=== PATIENT | male | born 1950 | race Caucasian/White ===

== ENCOUNTER 2016-09-19 10:41 | Observation (INO) | payer BC ==
[~2016-09-19] VITALS: Ht 182.9 cm; Wt 139.0 kg
[~2016-09-19 10:41] MED LIST: ASPI81TA2 PO; CLOB15CR5 TOP; CLOP75TA33 PO; EZET10TA PO; FAMO20TA8 PO; HYDR-2164 PO; LOSA25TA34 PO; METF500T4 PO; METO25TA6 PO; NITR0.4T39 SL; POTA10CA37 PO; SERT-88 PO
--- OUTSIDE RECORDS SUMMARY | 2016-09-19 10:50 | XMS REPORT | Continuity of Care Document ---
Author Author [facility] Organization [facility] Address Unknown Phone Unavailable Allergies Active Description Code Type Severity Reaction Onset Reported/Identified Relationship to Patient Clinical Status Yes cyclobenzaprine NKMA N/A N/A 01/09/2014 Yes cyclobenzaprine NKMA N/A N/A 01/09/2014 Yes Welchol NKMA N/A [id number] 10/21/2014 Yes Welchol NKMA N/A [id number] 10/21/2014 Yes statins NKMA N/A [id number] 11/17/2014 Yes statins NKMA N/A [id number] 11/17/2014 Yes cephalexin NKMA N/A N/A 12/09/2014 Yes erythromycin NKMA N/A N/A 12/09/2014 Yes cephalexin NKMA N/A N/A 12/09/2014 Yes erythromycin NKMA N/A N/A 12/09/2014 Yes Tape Other N/A N/A 01/29/2015 Yes Tape 403 N/A N/A 01/29/2015 Medications Medication Packaging Start Date Stop Date Route Dosage Sig potassium chloride(potassium chloride 10 mEq oral capsule, extended release) 08/201303/03/2014 See Instructions, TAKE ONE CAPSULE BY MOUTH EVERY DAY, 30 unknown unit atorvastatin(Lipitor 40 mg oral tablet) 1 tabs 11/13/201301/09 Oral 40 mg 1 tabs, Oral, Daily, 30 tabs nitroglycerin(nitroglycerin 0.4 mg sublingual tablet) 1 tabs 11/13/2013 07/05/2015 SubLingual 0.4 mg 1 tabs, SubLingual, q5min, 100 tabs, PRN: as needed for chest pain losartan(Cozaar 25 mg oral tablet) 1 tabs 11/13/2013 Oral 25 mg 1 tabs, Oral, Daily, 30 tabs metoprolol(metoprolol tartrate 25 mg oral tablet) 1 tabs 11/13/2013 Oral 25 mg 1 tabs, Oral, BID, 60 tabs isosorbide mononitrate(Imdur 30 mg oral tablet, extended release) 1 tabs 201301/09/2014 Oral 30 mg 1 tabs, Oral, qAM, 30 tabs amLODIPine(amLODIPine 10 mg oral tablet) 1 tabs 11/13/201305/2014 Oral 10 mg 1 tabs, Oral, Daily, 30 tabs sertraline(Zoloft 100 mg oral tablet) 0.5 tabs 11/13/201301/09 Oral 50 mg 0.5 tabs, Oral, Daily, 30 tabs potassium chloride(potassium chloride 10 mEq oral capsule, extended release) 1 caps 11/13/2013 03/03/2014 Oral 10 mEq 1 caps, Oral, Daily, 30 caps hydrochlorothiazide(hydrochlorothiazide 25 mg oral tablet) 1 tabs 11/13/2013 08/26/2014 Oral 25 mg 1 tabs, Oral, Daily, 30 tabs fluticasone nasal(Flonase 50 mcg/inh nasal spray) 1 sprays 11/13/2013 01/09/2014 Nasal 1 sprays, Nasal, BID, 16 g loratadine(loratadine 10 mg oral tablet) 1 tabs 11/13/2013 Oral 10 mg 1 tabs, Oral, Daily, 30 tabs omeprazole(omeprazole 20 mg oral delayed release capsule) 1 caps 11/13/2013 01/09/2014 Oral 20 mg 1 caps, Oral, Daily, 30 caps aspirin(aspirin 325 mg oral tablet) 1 tabs 11/13/20132015 Oral 325 mg 1 tabs, Oral, Daily, 30 tabs clopidogrel(Plavix 75 mg oral tablet) 1 tabs 11/13/20132013 Oral 75 mg 1 tabs, Oral, Daily, 90 tabs pitavastatin(Livalo) 01/09/2014 06/03/2014 Oral Oral, Daily potassium chloride(potassium chloride 10 mEq oral capsule, extended release) 08/26/2014 See Instructions, TAKE ONE CAPSULE BY MOUTH EVERY DAY, 30 unknown unit clopidogrel(Plavix 75 mg oral tablet) 1 tabs 06/03/20142014 Oral 75 mg 1 tabs, Oral, Daily, Dr. Stewart benzonatate(Tessalon 200 mg oral capsule) 1 caps 06/03/201403/2015 Oral 200 mg 1 caps, Oral, TID, 30 caps azithromycin(Zithromax Z-Elder 250 mg oral tablet) 1 packets 07/08/2014 07/13/2014 Oral 1 packets, Oral, Daily, as directed on package labeling , 6 tabs predniSONE(predniSONE 20 mg oral tablet) 1 tabs 07/08/201402/2015 Oral 20 mg 1 tabs, Oral, Daily, 5 tabs promethazine/phenylephrine/codeine(promethazine/ phenylephrine/codeine 6.25 mg-5 mg-10 mg/5 mL oral syrup) 5 mL 07/08/20142014 Oral 5 mL, Oral, q6hr, 120 mL, PRN: as needed for cough famotidine(Pepcid 20 mg oral tablet) 1 tabs 07/13/2014 Oral 20 mg 1 tabs, Oral, BID, 60 tabs sertraline(Zoloft 50 mg oral tablet) 1 tabs 07/13/20142014 Oral 50 mg 1 tabs, Oral, Daily, 30 tabs metFORMIN(metFORMIN 500 mg oral tablet) 1 tabs 07/30/201408/28 Oral 500 mg 1 tabs, Oral, Daily, 2 tablets with evening meal, 60 tabs metFORMIN(metFORMIN 500 mg oral tablet) 1 tabs 08/28/201401/04 Oral 500 mg 1 tabs, Oral, BID, 60 tabs diphenhydrAMINE(diphenhydrAMINE) 12/09/2014 09/20/2015 Oral 25 mg 25 mg, Oral, q6hr, PRN: as needed for allergy symptoms, 0 Refill(s) levofloxacin(Levaquin 500 mg oral tablet) 1 tabs 12/09/2014 Oral 500 mg 500 mg=1 tabs, Oral, q24hr, for 7 days, 7 tabs, 0 Refill(s) clopidogrel(Plavix 75 mg oral tablet) 12/31/2014 06/25/2015 See Instructions, TAKE ONE TABLET BY MOUTH ONCE A DAY, 90 tabs, 1 Refill(s) metFORMIN(metFORMIN 500 mg oral tablet) 01/04/20152014 See Instructions, TAKE ONE TABLET BY MOUTH TWICE A DAY, 60 tabs, 2 Refill (s) tetanus/diphth/pertuss (Tdap) adult/adol(Boostrix (Tdap) intramuscular suspension) 0.5 mL 01/11/2015 01/11/2015 IntraMuscular 0.5 mL , IntraMuscular, Once potassium chloride(potassium chloride 10 mEq oral capsule, extended release) 10/201408/02/2015 See Instructions, TAKE ONE CAPSULE BY MOUTH EVERY DAY, 30 unknown unit, 4 Refill(s) hydrochlorothiazide(hydrochlorothiazide 25 mg oral tablet) 03/08/2015 09/20/2015 See Instructions, TAKE ONE TABLET BY MOUTH EVERY DAY, 90 tabs sertraline(Zoloft 100 mg oral tablet) 03/08/2015 09/03/2015 See Instructions, TAKE 1/2 TABLET BY MOUTH ONCE DAILY, 90 tabs clobetasol topical(clobetasol 0.05% topical cream) 1 fide 03/22/2015 04/22/2015 Topical 1 fide, Topical, BID, 15 g, 0 Refill(s) levofloxacin(Levaquin 500 mg oral tablet) 1 tabs 04/21/2015 Oral 500 mg 500 mg=1 tabs, Oral, q24hr, for 7 days, 7 tabs, 0 Refill(s) levofloxacin(Levaquin 500 mg oral tablet) 1 tabs 04/21/2015 Oral 500 mg 500 mg=1 tabs, Oral, q24hr, for 10 days, 10 tabs, 0 Refill(s) levofloxacin(Levaquin 500 mg oral tablet) 1 tabs 06/21/2015 Oral 500 mg 500 mg=1 tabs, Oral, q24hr, for 10 days, 10 tabs, 0 Refill(s) clopidogrel(Plavix 75 mg oral tablet) 06/25/2015 09/20/2015 See Instructions, TAKE ONE TABLET BY MOUTH ONCE A DAY, 90 tabs, 1 Refill(s) nitroglycerin(nitroglycerin 0.4 mg sublingual tablet) 1 tabs 07/05/2015 SubLingual 0.4 mg 0.4 mg=1 tabs, SubLingual, q5min, PRN: as needed for chest pain, 1 bottles, 11 Refill(s) mupirocin topical(mupirocin 2% topical cream) 08/09/2015 See Instructions, Apply a pea-sized amount of ointment with a Q-tip to each nostril twice a day., 30 g, 0 Refill(s) clobetasol topical(clobetasol 0.05% topical cream) fide 09/20/2015 Topical fide, Topical, Bedtime (once a day), leg rash, 0 Refill(s) sertraline(sertraline) 09/20/2015 04/03/2016 Oral 50 mg 50 mg, Oral, Daily, 0 Refill(s) clopidogrel(clopidogrel) 09/20/2015 Oral 75 mg 75 mg, Oral , Daily, 0 Refill(s) metFORMIN(metFORMIN) 09/20/2015 11/02/2015 Oral 1,000 mg 1,000 mg, Oral, qPM, 0 Refill(s) hydrochlorothiazide(hydrochlorothiazide) 09/20/2015 Oral 25 mg 25 mg, Oral, Daily, 0 Refill(s) acetaminophen(Tylenol range dose) 2 tabs 09/20/2015 09/27/2015 Oral 1,000 mg 1,000 mg=2 tabs, Oral, q4hr, PRN: Pain Mild (1-3) diphenhydrAMINE(diphenhydrAMINE) 1 tabs 09/20/2015 09/27/2015 Oral 25 mg 25 mg=1 tabs, Oral, q6hr, PRN: Seasonal Allergy Symptoms potassium chloride(Klor-Con) 09/20/2015 11/02/2015 Oral 10 mEq 10 mEq, Oral, Daily, 0 Refill(s) amLODIPine(amLODIPine) 09/20/2015 10/01/2015 Oral 10 mg 10 mg, Oral, Daily, 0 Refill(s) aspirin(aspirin) 1 tabs 09/20/2015 09/20/2015 Oral 325 mg 325 mg=1 tabs, Oral, Daily metoprolol(metoprolol tartrate 25 mg oral tablet) 1 tabs 09/20/2015 09/27/2015 Oral 50 mg 50 mg=1 tabs, Oral, BID sertraline(sertraline) 1 tabs 09/20/2015 09/27/2015 Oral 50 mg 50 mg=1 tabs, Oral, Daily loratadine(loratadine) 1 tabs 09/20/2015 09/27/2015 Oral 10 mg 10 mg=1 tabs, Oral, Daily famotidine(Pepcid) 1 tabs 09/20/2015 09/27/2015 Oral 20 mg 20 mg= 1 tabs, Oral, BID losartan(Cozaar) 1 tabs 09/20/2015 09/27/2015 Oral 25 mg 25 mg= 1 tabs, Oral, Daily mupirocin topical(mupirocin 2% topical cream) 1 fide 09/20/2015 Nasal 1 fide, Nasal, TID, PRN: as needed, 0 Refill(s) morphine(morphine) 0.5 mL 09/20/2015 09/23/2015 IV Push 1 mg 1 mg=0.5 mL, IV Push, q4hr, PRN: Angina/Chest Pain nitroglycerin(nitroglycerin) 1 tabs 09/20/2015 10/02/2015 SubLingual 0.4 mg 0.4 mg=1 tabs, SubLingual, q5min, PRN: Angina/Chest Pain enoxaparin(Lovenox) 1 mL 09/20/2015 09/21/2015 SubCutaneous 150 mg 150 mg=1 mL, SubCutaneous, q12hr aspirin(aspirin) 1 tabs 09/20/2015 09/27/2015 Oral 81 mg 81 mg= 1 tabs, Oral, Daily heparin(Heparin Bolus) 1 mL 09/21/2015 09/27/2015 IV Push 5,000 units 5,000 units=1 mL, IV Push, q6hr, PRN: Other (See Comment) ondansetron(ondansetron) 2 mL 09/23/2015 09/27/2015 IV Push 4 mg 4 mg=2 mL, IV Push, q6hr, PRN: Nausea mupirocin topical(Bactroban) 1 fide 09/26/2015 09/27/2015 Nasal 1 fide, Nasal, BID allopurinol(Zyloprim) 2 tabs 09/26/2015 09/27/2015 Oral 600 mg 600 mg=2 tabs, Oral, Once acetaminophen(acetaminophen) 1 supp 09/26/2015 09/27/2015 Rectal 650 mg 650 mg=1 supp, Rectal, q4hr, PRN: Pain Mild (1-3) zolpidem(Ambien) 1 tabs 09/26/2015 09/27/2015 Oral 5 mg 5 mg=1 tabs, Oral, Bedtime (once a day), PRN: Insomnia metoclopramide(Reglan) 2 mL 09/27/2015 10/02/2015 IV Push 10 mg 10 mg=2 mL, IV Push, q6hr, PRN: Nausea HYDROcodone-acetaminophen([place] 5 mg-325 mg oral tablet) 09/27/2015 10/02/2015 Oral 1-2 tabs, Oral, q4hr, PRN: Pain Moderate (4-6) docusate(Colace) 2 caps 09/27/2015 10/02/2015 Oral 200 mg 200 mg=2 caps, Oral, Daily albuterol(albuterol CFC free 90 mcg/inh inhalation aerosol ) 6 puffs 09/27/2015 09/27/2015 Inhalation 540 mcg 540 mcg=6 puffs, Inhalation, q4hr (scheduled), PRN: Wheezing morphine(morphine) 09/27/2015 10/02/2015 IV Push 2-4 mg, IV Push, q2hr, PRN: Pain Severe (7-10) ondansetron(Zofran) 2 mL 09/27/2015 10/02/2015 IV Push 4 mg 4 mg= 2 mL, IV Push, q6hr, PRN: Nausea glucagon(glucagon) 1 mL 09/27/2015 10/02/2015 IntraMuscular 1 mg 1 mg=1 mL, IntraMuscular, As Indicated, PRN: Hypoglycemia/Low Blood Sugar Al hydroxide/Mg hydroxide/simethicone(Maalox Advanced Maximum Strength oral suspension) 15 mL 09/27/2015 10/02/2015 Oral 15 mL, Oral, q4hr, PRN: GERD/Heartburn Sodium Chloride 0.9%(sodium chloride 0.9% 250 mL) 250 mL 09/27/2015 09/28/2015 IV 10 mL/hr, IV polyethylene glycol 3350(MiraLax) 1 packets 09/27/20152015 Oral 17 g 17 g=1 packets, Oral, Daily albuterol(albuterol 5 mg/mL (0.5%) inhalation solution) 0.5 mL 09/27/2015 09/27/2015 NEB 2.5 mg 2.5 mg=0.5 mL, NEB, q4hr (scheduled), PRN: Wheezing Dextrose 50% in Water(Dextrose 50% in Water Injection) 25 mL 09/27/2015 10/02/2015 IV Push 12.5 g 12.5 g=25 mL, IV Push, q15min, PRN: Hypoglycemia/Low Blood Sugar Dextrose 10% in Water(Dextrose 10% in Water 250 mL) 250 mL 09/27/2015 09/28/2015 IV 50 mL/hr, IV heparin(heparin) 1 mL 09/27/2015 10/02/2015 SubCutaneous 5,000 units 5,000 units=1 mL, SubCutaneous, TID mupirocin topical(Bactroban) 1 fide 09/27/2015 09/30/2015 Nasal 1 fide, Nasal, BID senna(Senokot) 1 tabs 09/27/2015 10/02/2015 Oral 8.6 mg 8.6 mg=1 tabs, Oral, BID famotidine(Pepcid) 2 mL 09/27/2015 09/28/2015 IV Push 20 mg 20 mg =2 mL, IV Push, BID acetaminophen(acetaminophen) 1 supp 09/27/2015 10/02/2015 Rectal 650 mg 650 mg=1 supp, Rectal, q4hr, PRN: Fever aspirin(aspirin) 1 tabs 09/27/2015 10/02/2015 Oral 81 mg 81 mg= 1 tabs, Oral, Daily potassium chloride(potassium chloride 20 mEq oral powder for reconstitution) 2 packets 09/27/2015 09/29/2015 Oral 40 mEq 40 mEq=2 packets, Oral , q2hr, PRN: Other (See Comment) magnesium sulfate(magnesium sulfate) 100 mL 09/27/20152015 IV Piggyback 4 g 4 g=100 mL, 25 mL/hr, IV Piggyback, Daily, PRN: Other (See Comment) potassium chloride(potassium chloride 10 mEq/50 mL intravenous solution) 50 mL 09/27/2015 09/29/2015 IV Piggyback 10 mEq 10 mEq=50 mL, 50 mL/hr, IV Piggyback, q1hr, PRN: Other (See Comment) potassium chloride(potassium chloride 20 mEq oral tablet, extended release) 2 tabs 09/27/2015 09/29/2015 Oral 40 mEq 40 mEq=2 tabs, Oral, q2hr, PRN: Other (See Comment) calcium gluconate(calcium gluconate) 30 mL 09/27/20152015 IV Piggyback 3 g 3 g=30 mL, 43.33 mL/hr, IV Piggyback, Daily, PRN: Other ( See Comment) calcium carbonate(calcium carbonate) 2 tabs 09/27/20152015 Oral 2,500 mg 2,500 mg=2 tabs, Oral, TID, PRN: Other (See Comment) metoprolol(Lopressor) 0.5 tabs 09/28/2015 10/02/2015 Oral 12.5 mg 12.5 mg=0.5 tabs, Oral, BID furosemide(Lasix) 4 mL 09/28/2015 10/02/2015 IV Push 40 mg 40 mg =4 mL, IV Push, BID nitroglycerin(Nitrostat 0.4 mg sublingual tablet) 1 tabs 09/29/2015 10/02/2015 SubLingual 0.4 mg 0.4 mg=1 tabs, SubLingual, q5min, PRN: Angina/ Chest Pain bisacodyl(bisacodyl) 1 supp 09/30/2015 09/30/2015 Rectal 10 mg 10 mg=1 supp, Rectal, Once, PRN: Constipation lidocaine topical(Lidoderm 5% topical film) 1 patches 09/30/2015 10/02/2015 TransDermal 1 patches, TransDermal, Daily bisacodyl(bisacodyl) 2 tabs 09/30/2015 10/02/2015 Oral 10 mg 10 mg=2 tabs, Oral, Daily, PRN: Constipation HYDROcodone-acetaminophen([place] 5 mg-325 mg oral tablet) 10/01/2015 10/15/2015 Oral 1-2 tabs, Oral, q4hr, for 14 days, PRN: Pain Moderate (4 -6), 50 tabs, 0 Refill(s) aspirin(aspirin 81 mg oral delayed release tablet) 1 tabs 10/01/2015 Oral 81 mg 81 mg=1 tabs, Oral, Daily, 0 Refill(s) potassium chloride(potassium chloride 20 mEq oral tablet, extended release) 2 tabs 10/02/2015 10/02/2015 Oral 40 mEq 40 mEq=2 tabs, Oral, Once HYDROcodone-acetaminophen([place] 5 mg-325 mg oral tablet) 1 tabs 10/13/2015 11/13/2015 Oral 1 tabs, Oral, q6hr, PRN: as needed for pain, 15 tabs, 0 Refill(s) amoxicillin-clavulanate(Augmentin 875 mg-125 mg oral tablet ) 1 tabs 11/26/2015 12/03/2015 Oral 1 tabs, Oral, q12hr, for 7 days, 14 tabs, 0 Refill(s) predniSONE(predniSONE 10 mg oral tablet) 4 tabs 01/14/201605/2016 Oral 40 mg 40 mg=4 tabs, Oral, Daily, for 4 days, 16 tabs, 0 Refill(s) HYDROcodone-acetaminophen([place] 5 mg-325 mg oral tablet) 1 tabs 01/14/2016 02/14/2016 Oral 1 tabs, Oral, q6hr, PRN: as needed for pain, 40 tabs, 0 Refill(s) predniSONE(predniSONE 10 mg oral tablet) 4 tabs 01/14/2016 Oral 40 mg 40 mg=4 tabs, Oral, Daily, for 4 days, 16 tabs, 0 Refill(s) potassium chloride(potassium chloride 10 mEq oral capsule, extended release) 08/201508/29/2016 See Instructions, TAKE ONE CAPSULE BY MOUTH EVERY DAY, 30 unknown unit, 5 Refill(s) sertraline(sertraline 100 mg oral tablet) 04/03/2016 See Instructions, TAKE 1/2 TABLET BY MOUTH ONCE DAILY, 90 tabs, 1 Refill(s) metFORMIN(metFORMIN 500 mg oral tablet) 04/24/20162016 See Instructions, TAKE ONE TABLET BY MOUTH TWICE A DAY, 60 tabs, 3 Refill (s) metFORMIN(metFORMIN 500 mg oral tablet) 08/21/2016 See Instructions, TAKE ONE TABLET BY MOUTH TWICE A DAY, 60 tabs potassium chloride(potassium chloride 10 mEq oral capsule, extended release) See Instructions, TAKE ONE CAPSULE BY MOUTH EVERY DAY, 30 unknown unit, 5 Refill(s) ezetimibe(Zetia) 09/07/2016 Oral 10 mg 10 mg, Oral, Daily, 0 Refill(s) Problems Date Dx Coded Attending Type Code Diagnosis Diagnosed By 10/04/2015 Branden Davis MD Final E11.9 Type 2 diabetes mellitus without complications 10/04/2015 Branden Davis MD Final E66.9 Obesity, unspecified 10/04/2015 Branden Davis MD Final E78.5 Hyperlipidemia, unspecified 10/04/2015 Branden Davis MD Final G47.33 Obstructive sleep apnea (adult) ( pediatric) 10/04/2015 Branden Davis MD Final I10 Essential (primary) hypertension 10/04/2015 Branden Davis MD Admitting 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 Visit Date/Time Discharge Status Pt. Type Provider Facility Loc./Unit Complaint [id number] 08/29/2013 08:33:00 08/29/2013 23 :59:59 CLS Outpatient [id number] 08/12/2013 10:26:00 08/12/2013 23 :59:59 CLS Outpatient [id number] 08/08/2013 08:50:00 08/08/2013 23 :59:59 CLS Outpatient [id number] 07/21/2013 16:15:00 07/21/2013 23 :59:59 CLS Outpatient
--- OUTSIDE RECORDS SUMMARY | 2016-09-19 10:53 | XMS REPORT | Referral Summary ---
Author Author [facility] Organization [facility] Address Unknown Phone Unavailable Care Team Providers Care Marine Engineer Name Role Phone Raiza Bender Primary Care Physician [phone] Encounter VC Date(s): 05/24/16 - 05/24/16 [facility] [address] [place] [address]- Discharge Disposition: 01-Home or Self Care Attending Physician: Kaushal Hines APRN Admitting Physician: Kaushal Hines APRN Vital Signs Most recent to 1 oldest [Reference Range]: Temperature Tympanic 35.8 degC [36.6-38.1 degC] *LOW* (05/24/16 9:32 AM) Peripheral Pulse 60 bpm Rate [60-100 bpm] (05/24/16 9:32 AM) Respiratory Rate 18 br/min [14-20 br/min] (05/24/16 9:32 AM) Blood Pressure 128/70 mmHg [90-140/60-90 mmHg] (05/24/16 9:32 AM) SpO2 93 % (05/24/16 9:32 AM) Problem List Condition Effective Dates Status Health Status Informant Acute NC(Confirmed) 2013 - 01/08/14 Resolved Acute Active pain(Confirmed) Allergies(Confirmed) Active Anxiety state Active unspec(Confirmed) Embolism and Active thrombosis of unspecified artery(Confirmed) TMJ Active arthralgia(Confirmed ) Pain in joint Active involving pelvic region and thigh(Confirmed) Arthritis(Confirmed) Active At risk of pressure Active sore(Confirmed) Benign essential Active hypertension (disorder)(Confirmed ) Bleeding Active precautions(Confirme d)1 Blepharitis(Confirme Active d) Carpal tunnel Active syndrome(Confirmed) Chest pain Active (finding)(Confirmed) Chronic low back Active pain(Confirmed) Coronary artery Active disease(Confirmed) Dermatochalasis(Conf Active irmed) Depression(Confirmed Active ) acute venous < 01/08/14 Resolved embolism & thrombosis unspe(Confirmed) Statin Active intolerance(Confirme d) Dysphagia, Active unspecified(Confirme d) Edema Active (finding)(Confirmed) unspec gastritis w/o < 01/08/14 Resolved hemorrhage(Confirmed ) GERD Active (gastroesophageal reflux disease)(Confirmed) Gout, Active unspecified(Confirme d) Blood clots in the < 01/08/14 Resolved lung/legs(Confirmed) Hx of adenomatous Active polyp of colon(Confirmed) Impaired gas Active exchange(Confirmed)2 Impaired skin Active integrity(Confirmed) 3 Knowledge Active deficit(Confirmed)4 Methicillin < 12/11/14 Resolved resistant Staphylococcus aureus(Confirmed)5, 6, 7, 8, 9 Obstructive sleep Active apnea(Confirmed) Osteoarthritis, spec Active sites(Confirmed) Overweight(Confirmed Active ) PCO (posterior Active capsular opacification)(Confi rmed) Pseudophakia(Confirm Active ed) Unspecified sleep < 01/08/14 Resolved apnea(Confirmed) TMJ disorders, Active unspec(Confirmed) Tissue perfusion Active alteration(Confirmed )10 Controlled diabetes Active mellitus type II without complication(Confirm ed) Ac DVT/embl low ext < 01/08/14 Resolved NOS(Confirmed) 1Problem added automatically by system based on initiation of Bleeding Precautions Plan of Care 2Problem added automatically by system based on initiation of Impaired Gas Exchange Plan of Care 3Problem added automatically by system based on initiation of Impaired Skin Integrity Plan of Care 4Problem added automatically by system based on initiation of Knowledge Deficit Plan of Care 5Nares from NOT FOUND collected 09/26/15 7:53:00 CDT 6Nares from Nose collected 09/10/15 11:49:00 CDT 7Nares from Other collected 08/24/15 10:50:00 CDT 8Nares from Nose collected 08/04/15 10:32:00 CARE DIRECTOR 9Wound from Abdomen collected 12/09/14 10:38:00 CDT 10Problem added automatically by system based on initiation of Tissue Perfusion Cerebral Plan of Care Allergies, Adverse Reactions, Alerts Substance Reaction Severity Status cephalexin1 Active cyclobenzaprine Active erythromycin2 Active statins Muscle ache Active Tape Active Welchol Joint pain... Active 1Documented by [facility]. Pt cannot reacall reaction. 2documented by [facility]. Pt cannot recall reaction. Medications aspirin 81 mg oral delayed release tablet 81 mg 1 tabs, Oral, Daily, 0 Refill(s) Start Date: 10/01/15 Status: Ordered clobetasol 0.05% topical cream fide, Topical, Bedtime (once a day), leg rash, 0 Refill(s) Start Date: 09/20/15 Status: Ordered clopidogrel 75 mg oral tablet See Instructions, TAKE ONE TABLET BY MOUTH ONCE A DAY, # 90 tabs, eRx: [facility] #[id number], TAKE ONE TABLET BY MOUTH ONCE A DAY Start Date: 05/06/16 Status: Ordered Cozaar 25 mg oral tablet 1 tabs, Oral, Daily, # 30 tabs, 0 Refill(s) Start Date: 11/13/13 Status: Ordered Glucometer strips (DME) DME Item CHECK BLOOD SUGAR 1 TIME DAILY USES CONTOUR NEXT TEST STRIPS E11.9, See Instructions, # 100 Each, 1 Refill(s), Pharmacy: [facility] #[id number], CHECK BLOOD SUGAR 1 TIME DAILY USES CONTOUR NEXT TEST STRIPS E11.9, Supply Start Date: 03/09/16 Status: Ordered hydrochlorothiazide 25 mg, Oral, Daily, 0 Refill(s) Start Date: 09/20/15 Status: Ordered loratadine 10 mg oral tablet 1 tabs, Oral, Daily, # 30 tabs, 0 Refill(s) Start Date: 11/13/13 Status: Ordered metFORMIN 500 mg oral tablet See Instructions, TAKE ONE TABLET BY MOUTH TWICE A DAY, # 60 tabs, 3 Refill(s), eRx: [facility] #[id number], TAKE ONE TABLET BY MOUTH TWICE A DAY Start Date: 04/24/16 Status: Ordered metoprolol tartrate 25 mg oral tablet 1 tabs, Oral, BID, # 60 tabs, 0 Refill(s) Start Date: 11/13/13 Status: Ordered mupirocin 2% topical cream 1 fide, Nasal, TID, as needed, 0 Refill(s) Start Date: 09/20/15 Status: Ordered nitroglycerin 0.4 mg sublingual tablet 0.4 mg 1 tabs, SubLingual, q5min, as needed for chest pain, # 1 bottles, 11 Refill(s), Pharmacy: [facility] #[id number], 1 tabs SubLingual q5min,PRN:as needed for chest pain Start Date: 07/05/15 Status: Ordered Pepcid 20 mg oral tablet 1 tabs, Oral, BID, # 60 tabs, 0 Refill(s), other reason (Rx) Start Date: 07/13/14 Status: Ordered potassium chloride 10 mEq oral capsule, extended release See Instructions, TAKE ONE CAPSULE BY MOUTH EVERY DAY, # 30 unknown unit, 5 Refill(s), eRx: [facility] #[id number], TAKE ONE CAPSULE BY MOUTH EVERY DAY Start Date: 03/06/16 Status: Ordered sertraline 100 mg oral tablet See Instructions, TAKE 1/2 TABLET BY MOUTH ONCE DAILY, # 90 tabs, 1 Refill(s), eRx: [facility] #[id number], TAKE 1/2 TABLET BY MOUTH ONCE DAILY Start Date: 04/03/16 Status: Ordered Results No data available for this section Immunizations Given and Recorded Vaccine Date Status Refusal Reason tetanus/diphth/pertuss (Tdap) adult/adol 01/11/15 Given tetanus/diphth/pertuss (Tdap) adult/adol 11/22/06 Recorded Procedures Procedure Date Related Diagnosis Body Site Laparoscopic repair of incisional hernia. 01/28/16 Eye examination1 10/27/15 Bypass Graft Coronary Artery2 09/27/15 [place] Endoscopic (Left)3 09/27/15 Laparoscopic right hemicolectomy4, 5 11/26/14 Colonoscopic polypectomy6 11/12/14 CATH/STENT LAD 2013 R [facility] 08/12/09 Hip replacement L 08/23/06 L [facility] 08/23/06 TKR 07/2006 cataract left 04/10/05 cataract right 03/27/05 Colonoscopy JUL [id number] 07/2004 EGD 1995 HEART CATH 12/1994 EGD1991 1[facility] 2auto-populated from documented surgical case 3auto-populated from documented surgical case 4Robotic-assist 5Large tubulovillous adenoma, 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 6adenomatous polyps x4, with large one at ileocecal valve, unable to be removed endoscopically. Schedule right hemicolectomy. 7polyps, hyperplastic, hemorrhoids 41800/1995 Social History Social History Type Response Smoking Status Never smoker Assessment and Plan No data available for this section
--- OUTSIDE RECORDS SUMMARY | 2016-09-19 10:53 | XMS REPORT | Continuity of Care Document ---
Author Author [facility] Organization [facility] Address Unknown Phone Unavailable Support Name Relationship Address Phone CRISTINA LUIS DO Caregiver [address] [place] [address] Unavailable AMARA DALE MD Caregiver [address] [place] [address] Unavailable LA NENA SANDS Next Of Kin [address] [place], [place] [id number] Insurance Providers Guarantor Meghan Sands Address [address] [place] [address] Email [email or web address] [facility] Policy Number [id number] Subscriber's Name ShavonMeghan Jadon Relationship 18 Self Group Number [id number] Effective Date 04 Advance Directives Directive Response Recorded Date/Time Advanced Directives Type Living Will 09/30/13 3:07am Dr Ordered Resuscitation Status Full Code 09/30/13 2:05am Resuscitation Documents on File No 09/30/13 3:07am Chief Complaint and Reason for Visit Chief Complaint Chest Pain Reason for Visit Dyspnea Problems Active Problems Medical Problem Onset Date Status Adenomatous polyp of colon Unknown Resolved Allergic rhinitis Unknown Chronic Angina at rest Unknown Acute Angina at rest Unknown Acute Anticoagulated Unknown Chronic CAD (coronary artery disease), [place] coronary artery ~09/17/2013 Chronic Chest pain ~09/17/2013 Resolved Chest pain Unknown Chronic DVT (deep venous thrombosis) Unknown Resolved Depression Unknown Chronic Diabetes mellitus Unknown Chronic Dyslipidemia Unknown Chronic GERD (gastroesophageal reflux disease) Unknown Chronic HTN (hypertension) Unknown Chronic History of DVT (deep vein thrombosis) Unknown Resolved History of MD (myocardial infarction) Unknown Resolved Hypokalemia Unknown Resolved Ileus, postoperative Unknown Resolved Morbid obesity with BMI of 40.0-44.9, adult Unknown Chronic Morbid obesity with BMI of 40.0-44.9, adult Unknown Chronic Morbid obesity with BMI of 45.0-49.9, adult Unknown Chronic NSTEMI (non-ST elevated myocardial infarction) ~09/17/2013 Acute Post-op pain Unknown Acute Rash, vesicular Unknown Acute Tubulovillous adenoma of colon Unknown Resolved Ventral incisional hernia Unknown Ventral incisional hernia Unknown Surgical Problem Onset Date Status S/P repair of ventral hernia Unknown Resolved S/P right colectomy Unknown Resolved Past Problems Medical Problem Onset Date Dyspnea Unknown Dyspnea Unknown Medications Current Home Medications Medication Dose Units Route Directions Days Qty Instructions Start Date Aspirin 81 Mg Tab.chew 81 Mg Oral Daily 10/22/15 Clobetasol Propionate/Emoll (Clobetasol Emollient 0.05% Crm) 15 Gm Cream..g. 1 Applic Topically As Needed 10/22/15 Clopidogrel Bisulfate (Clopidogrel) 75 Mg Tablet 75 Mg Oral Daily 10/22/15 Ezetimibe (Zetia) 10 Mg Tablet 10 Mg Oral Daily 06/28/16 Famotidine 20 Mg Tablet 20 Mg Oral Twice A Day 10/22/15 Hydrochlorothiazide 25 Mg Tablet 25 Mg Oral Daily 09/17/13 Losartan Potassium 25 Mg Tablet 25 Mg Oral Daily 10/22/15 Metformin Hcl 500 Mg Tablet 500 Mg Oral Twice A Day 11/27/15 Metoprolol Tartrate 25 Mg Tablet 25 Mg Oral Twice Daily With Meals 10/22/15 Nitroglycerin 0.4 Mg Tab.subl 0.4 Mg Sublingual Every 5 Minutes X 3 as needed for Chest Tightness 11/27/15 Potassium Chloride 10 Meq Capsule.er 10 Meq Oral Daily 10/22/15 Sertraline Hcl (Zoloft) 100 Mg Tablet 50 Mg Oral Daily 10/17/13 Past Home Medications Medication Directions Ordered Status Aspirin 81 Mg Tablet, 81 Mg Oral Daily 09/17/13 Discontinued Hydrocodone/Acetaminophen ([place] 5-325 Tablet) 5-325 Tablet, 1-2 Tab Oral Every 5 Hours as needed for Pain 01/28/16 Discontinued Losartan Potassium 50 Mg Tablet, 25 Mg Oral 09/30/13 Discontinued Metformin Hcl 500 Mg Tablet, 2 Tab Oral At Evening Meal 11/11/14 Discontinued Metformin Hcl 500 Mg Tablet, 500 Mg Oral Bedtime 11/11/14 Discontinued Nitroglycerin 0.4 Mg Tab.subl, 0.4 Mg Sublingual 09/30/13 Discontinued Omeprazole (Prilosec) 20 Mg Capsule.dr, 20 Mg Oral Daily 09/17/13 Discontinued Sertraline Hcl (Zoloft) 50 Mg Tablet, 50 Mg Oral Daily 09/17/13 Discontinued Triamcinolone Acetonide (Kenalog 0.1% Ointment) 454 Applic/454 G Oint, 1 Applic Topically As Needed 10/17/13 Discontinued Social History Social History Problem Response Recorded Date/Time Onset Date Status Chewing Tobacco Status No 10/16/2013 4:45pm Not Applicable Not Applicable Hx Substance Use No 06/28/2016 2:38pm Not Applicable Not Applicable Hx Alcohol Use No 06/28/2016 2:38pm Not Applicable Not Applicable Has the pt used tobacco in the last 12 months No 01/30/2016 12:33am Not Applicable Not Applicable Tobacco Usage none 09/17/2013 6:14pm Not Applicable Not Applicable Query Response Start Date Stop Date Smoking Status Never smoker Hospital Discharge Instructions No hospital discharge instructions. Plan of Care Discharge Date 06/28/16 4:20pm Disposition 01 DISCHARGED HOME, SELF-CARE Condition at Discharge Improved Instructions/Education Provided Dyspnea (ED) Prescriptions See Medication Section Referrals AMARA DALE MD Address: [address] [place], [place] [phone] Note: SALMA GILLIAM MD Address: [address] [place] [address] [place] [address] [phone] Additional Instructions/Education Your labs, chest x-ray and EKG did not indicate any etiology. Dr. Gilliam would like you to schedule a follow up appointment with him, call tomorrow. Follow treatment plan. Care Plan and Goals Physician Care Plan Problem: Dyspnea Goal: Follow up with Dr. Gilliam as discussed Instructions: Take medications and follow care plan as discussed/written Functional Status No functional status results. Allergies, Adverse Reactions, Alerts Allergen Type Severity Reaction Status Last Updated Nqztnjq-[id number]-Rsg Reductase Inhibitor Adverse Reaction Unknown MUSCLE PAIN Active 06/28/16 Cyclobenzaprine Allergy Mild RASH Active 06/28/16 Colesevelam Adverse Reaction Unknown JOINT PAIN Active 06/28/16 tape Allergy Intermediate rash Active 09/20/15 Immunizations Query Response on File Recorded Date/Time Hx Influenza Vaccination No 01/30/16 12:33am Hx Pneumococcal Vaccination No 01/30/16 12:33am Hx Influenza Vaccination No 01/30/16 12:33am Vital Signs Acute Vital Signs Vital Response Date/Time Temperature (Fahrenheit) 98.3 deg F (96.8 - 99.1) 06/28/2016 4:20pm Temperature (Calculated Celsius) 36.24946 degrees C (36.0 - 37.3) 06/28/2016 4:20pm Pulse Rate (adult) 61 bpm (60 - 100) 06/28/2016 4:20pm Respiratory Rate 15 breaths/min (10 - 20) 06/28/2016 4:20pm O2 Sat by Pulse Oximetry 95 % (90 - 100) 06/28/2016 4:20pm Blood Pressure 135/65 mm Hg 06/28/2016 4:20pm Height (Feet) 6 feet 06/28/2016 2:05pm Height (Inches) 0 inches 06/28/2016 2:05pm Weight (Kilograms) 140.100 kg 06/28/2016 2:05pm Body Mass Index (BMI) 41.0 06/28/2016 2:05pm Results Laboratory Results Test Name Result Units Flags Reference Collection Date/Time Result Date/ Time Comments White Blood Count 8.1 T/MM3 4.5-11.0 06/28/2016 2:06/28/2016 2: 30pm Red Blood Count 5.40 M/MM3 4.50-5.90 06/28/2016 2:pm 06/28/2016 2: 30pm Hemoglobin 16.0 GM/DL 13.5-17.5 06/28/2016 2:06/28/2016 2:30pm Hematocrit 46.3 % 41-53 06/28/2016 2:06/28/2016 2:30pm Mean Corpuscular Volume 85.7 UM3 80-100 06/28/2016 2:06/28/2016 2: 30pm Mean Corpuscular Hemoglobin 29.6 UUG 26-34 06/28/2016 2:2016 2:30pm Mean Corpuscular Hemoglobin Concent 34.6 GM/DL 31-37 06/28/2016 2:06/28/2016 2:30pm RDW Standard Deviation 41.8 FL 36.9-50.2 06/28/2016 2:06/28/2016 2 :30pm Platelet Count 193 T/MM3 130-400 06/28/2016 2:06/28/2016 2:30pm Mean Platelet Volume 9.1 UM3 L 9.4-12.4 06/28/2016 2:06/28/2016 2: 30pm Neutrophils (%) (Auto) 65.3 % 33-66 06/28/2016 2:06/28/2016 2: 30pm Lymphocytes (%) (Auto) 24.0 % 23-45 06/28/2016 2:06/28/2016 2: 30pm Monocytes (%) (Auto) 5.8 % 0-9.0 06/28/2016 2:06/28/2016 2:30pm Eosinophils (%) (Auto) 4.1 % H 0-4 06/28/2016 2:06/28/2016 2:30pm Basophils (%) (Auto) 0.7 % 0-2 06/28/2016 2:06/28/2016 2:30pm Immature Granulocyte % (Auto) 0.1 % 0.0-0.5 06/28/2016 2:2016 2:30pm Absolute Neutrophils (auto) 5.3 T/MM3 1.8-7.7 06/28/2016 2:2016 2:30pm Absolute Lymphocytes (auto) 1.9 T/MM3 1-4.8 06/28/2016 2:2016 2:30pm Absolute Monocytes (auto) 0.5 T/MM3 0-0.8 06/28/2016 2:06/28/2016 2:30pm Absolute Eosinophils (auto) 0.3 T/MM3 0-0.5 06/28/2016 2:2016 2:30pm Absolute Basophils (auto) 0.1 T/MM3 0-0.2 06/28/2016 2:06/28/2016 2:30pm Absolute Immature Granulocyte (auto 0.01 T/MM3 0.00-0.03 06/28/2016 2: 06/28/2016 2:30pm Prothromb Time International Ratio 1.13 H 0.76-1.04 06/28/2016 2:06/28/2016 2:31pm THERAPUTIC RANGE=2.00-3.00 FOR ANTI-THROMBOSIS THERAPUTIC RANGE=2.50-3.50 FOR IMPLANTED VALVE D-Dimer 264 NG/ML H 0-230 06/28/2016 2:06/28/2016 2:38pm <230 NG/ ML D-DU=PRESUMPTIVE NEGATIVE FOR PE OR DVT >230 NG/ML D-DU=ADDITIONAL EVAL FOR PE OR DVT RECOMMENDED Icterus Index < 2 0-7 06/28/2016 2:06/28/2016 2:34pm Chemistry Specimen Hemolysis < 15 0-25 06/28/2016 2:06/28/2016 2 :34pm 0-25: Specimen Exhibited No Hemolysis. Turbidity < 20 0-20 06/28/2016 2:06/28/2016 2:34pm Sodium Level 143 MEQ/L 134-144 06/28/2016 2:06/28/2016 2:34pm Potassium Level 3.9 MEQ/L 3.6-5 06/28/2016 2:06/28/2016 2:34pm Chloride Level 102 MEQ/L 98-107 06/28/2016 2:06/28/2016 2:34pm Carbon Dioxide Level 26 MEQ/L 22-06/28/2016 2:06/28/2016 2: 34pm Anion Gap 15 MEQ/L 5-15 06/28/2016 2:06/28/2016 2:34pm Blood Urea Nitrogen 17.0 MG/DL 9-06/28/2016 2:06/28/2016 2: 34pm Creatinine 1.0 MG/DL 0.8-1.5 06/28/2016 2:06/28/2016 2:34pm BUN/Creatinine Ratio 17 RATIO 6-06/28/2016 2:06/28/2016 2:34pm Glomerular Filtration Rate Calc 75 06/28/2016 2:06/28/2016 2: 34pm Glucose Level 118 MG/DL H 75-110 06/28/2016 2:06/28/2016 2:34pm Calculated Osmolality 278 MOSM/KG 261-280 06/28/2016 2:06/28/2016 2:34pm Calcium Level 9.7 MG/DL 8.4-10.2 06/28/2016 2:06/28/2016 2:34pm Troponin I < 0.012 ng/ml 0-0.12 06/28/2016 2:06/28/2016 2:46pm Troponin values with a difference of 55% increase from orginal troponin value represent a true biological DELTA value. (%increase Calc=Orginal Troponin value, divided by subsequent Troponin value, multiplied by 100) EB-Dgt-L-Type Natriuretic Peptide 112 PG/ML 0-175 06/28/2016 2:21pm 3:01pm Rule in cut points: <50 years old=450; 50-75 years old=900; >75 years old=1800; When utilizing ProBNP rule-in cut points, adjustment for impaired renal function is typically not required. Name: MEGHAN SANDS Unit #: [id number] : 1950 Sex: M Admit Date: Loc / Svc: ED Discharge Date: DIAGNOSTIC IMAGING REPORT [facility] [id number] ITS.REASON: SOA for one day with cough for one month PROCEDURE: CHEST 2-VIEWS UPRIGHT (PA \T\ LAT) Encounter: Initial COMPARISON: November 27, 2015 Findings: The lungs are stable in appearance without new focal airspace consolidation. There is no pleural effusion or pneumothorax. The heart size, pulmonary vascularity and mediastinal contours are unchanged. IMPRESSION: Stable appearance of the chest without acute cardiopulmonary disease. . Procedures No known history of procedures. Encounters Encounter Location Arrival/Admit Date Discharge/Depart Date Attending Provider Departed Emergency Room [facility] 06/28/16 2:04pm 06/28/16 4: 20pm CRISTINA LUIS DO Recent Diagnosis
[2016-09-19 10:57] VITALS: Ht 182.9 cm; Wt 139.0 kg
[2016-09-19] MEDS ORDERED: PRN ORDERS MC (11:15)
[2016-09-19] MEDS ORDERED: MORPHINE SULFATE 4 MG SYRINGE IV PRN (11:15)
[2016-09-19] MEDS ORDERED: ONDANSETRON 4mg/2ml INJECTION IV PRN (11:15)
[2016-09-19 11:32] VITALS: BP 142/70; PULSE 53; RESP 20; TEMP 96; O2SAT 97
[2016-09-19 11:38] LABS: BASOPHILS # (AUTO) 0.1 T/MM3 (0-0.2); BASOPHILS % (AUTO) 0.7 % (0-2); EOSINOPHILS # (AUTO) 0.3 T/MM3 (0-0.5); EOSINOPHILS % (AUTO) 3.8 % (0-4); HCT - HEMATOCRIT 44.6 % (41-53); IMMATURE GRANULOCYTE # (AUTO) 0.01 T/MM3 (0.00-0.03); IMMATURE GRANULOCYTE % (AUTO) 0.1 % (0.0-0.5); LYMPHOCYTES # (AUTO) 2.2 T/MM3 (1-4.8); LYMPHOCYTES % (AUTO) 28.4 % (23-45); MEAN CORPUSCULAR HGB 29.5 UUG (26-34); MEAN CORPUSCULAR HGB CONC(MCHC 33.6 GM/DL (31-37); MEAN CORPUSCULAR VOLUME 87.6 UM3 (80-100); MEAN PLATELET VOLUME 9.7 UM3 (9.4-12.4); MONOCYTES # (AUTO) 0.5 T/MM3 (0-0.8); MONOCYTES % (AUTO) 6.7 % (0-9.0); NEUTROPHILS #(AUTO)-ABSOLUTE 4.6 T/MM3 (1.8-7.7); NEUTROPHILS % (AUTO) 60.3 % (33-66); RED BLOOD COUNT 5.09 M/MM3 (4.50-5.90); WBC - WHITE BLOOD COUNT 7.7 T/MM3 (4.5-11.0)
--- NOTE | 2016-09-19 11:42 | DI ---
Indication: ITS.REASON: chest pain PROCEDURE: CHEST 1 VIEW: Encounter: Initial Comparison: June 28, 2016 Findings: The lungs are stable in appearance without new focal airspace consolidation. There is no pleural effusion or pneumothorax. The heart size, pulmonary vascularity and mediastinal contours are unchanged. Prior CABG. IMPRESSION: Stable appearance of the chest without acute cardiopulmonary disease. .
--- NOTE | 2016-09-19 11:43 | NUR ---
ADMISSION PT ADMITTED TO ROOM 160 VIA AMBULATION DIRECT ADMIT AT 1050. PT AND ORIENTED TO BED AND ROOM, IVL PLACED TO LEFT FOREARM, AWAITING FURTHER ORDERS. PT REPORTS PAIN IN CHEST OF 2/10. PT IS UP WITH NO ASSIST, LOW FALL.
[2016-09-19 14:56] LABS: ANION GAP 12 MEQ/L (5-15); BUN/CREATININE RATIO 20 RATIO (6-26); CALCIUM 9.5 MG/DL (8.4-10.2); CHLORIDE 104 MEQ/L (98-107); CO2 - CARBON DIOXIDE 27 MEQ/L (22-30); CREATININE 0.9 MG/DL (0.8-1.5); GLOMERULAR FILTRATION RATE 85; GLUCOSE 120 MG/DL (75-110); SODIUM 143 MEQ/L (134-144)
[2016-09-19 15:24] VITALS: BP 138/80; PULSE 53; RESP 18; TEMP 95.8; O2SAT 98
--- NOTE | 2016-09-19 16:50 | NUR ---
SHIFT PT HAS BEEN PLEASANT AND COOPERATIVE ALL SHIFT. PT DENIES N/V AND SOA BUT CONTINUES TO REPORT SLIGHT PAIN IN CHEST. PT HAS BEEN UP TO RECLINER FOR MOST OF SHIFT AND IS ON ROOM AIR. TELE PLACED, SB WITH 1ST DEGREE HB. IS AT BEDSIDE. NO OTHER CHANGES SINCE ADMISSION, ORDER FOR DIET PLACED AND IMPLEMENTED.
[2016-09-19] MEDS ORDERED: NITROGLYCERIN 0.4 MG SUBLINGUAL TABLET SL PRN (19:45)
[2016-09-19 22:45] VITALS: BP 115/67; PULSE 59; RESP 20; TEMP 95.8; O2SAT 95
--- NOTE | 2016-09-20 05:54 | NUR ---
Status Pt in SR or SB during shift. Has slight pain in chest that he states has been there since approx a year ago. Denied any exacerbations of that pain. Troponin did not elevate overnight. States slept well. Used home C-PAP. Up in room ad chinedu. VSS. Pt asked about his evening metoprolol and metformin. Explained that Dr. Davis chose not to restart them. BP at that time 115/57. HR 59 BPM. Pt accepted explanation. Will continue to monitor.
[2016-09-20 07:08] VITALS: BP 130/85; PULSE 63; RESP 18; TEMP 96.4; O2SAT 97
[2016-09-20 08:42] LABS: HCT - HEMATOCRIT 44.4 % (41-53); HGB - HEMOGLOBIN 15.1 GM/DL (13.5-17.5); MEAN CORPUSCULAR HGB 29.5 UUG (26-34); MEAN CORPUSCULAR VOLUME 86.9 UM3 (80-100); MEAN PLATELET VOLUME 9.8 UM3 (9.4-12.4); RED BLOOD COUNT 5.11 M/MM3 (4.50-5.90); WBC - WHITE BLOOD COUNT 7.5 T/MM3 (4.5-11.0)
[2016-09-20 08:47] LABS: ANION GAP 12 MEQ/L (5-15); BUN/CREATININE RATIO 19 RATIO (6-26); CALCIUM 9.4 MG/DL (8.4-10.2); CHLORIDE 104 MEQ/L (98-107); CO2 - CARBON DIOXIDE 28 MEQ/L (22-30); CREATININE 0.9 MG/DL (0.8-1.5); GLOMERULAR FILTRATION RATE 85; GLUCOSE 119 MG/DL (75-110); POTASSIUM 3.8 MEQ/L (3.6-5); SODIUM 144 MEQ/L (134-144)
[2016-09-20] MEDS ORDERED: ENOXAPARIN 40 MG/0.4 ML INJECTION SQ SCH (09:00)
--- NOTE | 2016-09-20 12:58 | NUR ---
CM CM IN TO VISIT WITH PT. HE IS ALERT AND ORIENTED. HE DENIES DC NEEDS. HE PLANS TO RETURN HOME. HE IS GIVEN CM CONTACT INFORMATION. Addendum: 09/20/16 at 1259 by NATALIE VARELA RN Amended: Links added.
--- NOTE | 2016-09-20 14:03 | NUR ---
DISMISSAL PT DISMISSED TO HOME VIA AMBULATION AT 1353 TO 'S VEHICLE. BELONGINGS PACKED, GO HOME INSTRUCTIONS GIVEN, PT DRESSED AND IVL PULLED.
--- NOTE | 2016-09-20 17:07 | DSPDOC ---
KELVIN ARDON CONCIERGE MANAGER 09/20/16 1622: General Date Date DATE: 09/20/16 TIME: 16:19 Attending Physician Salma Davis MD Admitting Physician Salma Davis MD Consulting Physician Admitting Diagnosis chest pain Discharge Diagnosis chest pain Laboratory Laboratory Tests Test 09/19/16 11:15 09/19/16 20:55 09/19/16 23:12 09/20/16 05:08 White Blood Count 7.7T/MM3 (4.5-11.0) Red Blood Count 5.09M/MM3 (4.50-5.90) Hemoglobin 15.0GM/DL (13.5-17.5) Hematocrit 44.6% (41-53) Mean Corpuscular Volume 87.6UM3 (80-100) Mean Corpuscular Hemoglobin 29.5UUG (26-34) Mean Corpuscular Hemoglobin Concent 33.6GM/DL (31-37) RDW Standard Deviation 43.2FL (36.9-50.2) Platelet Count 193T/MM3 (130-400) Mean Platelet Volume 9.7UM3 (9.4-12.4) Immature Granulocyte % (Auto) 0.1% (0.0-0.5) Neutrophils (%) (Auto) 60.3% (33-66) Lymphocytes (%) (Auto) 28.4% (23-45) Monocytes (%) (Auto) 6.7% (0-9.0) Eosinophils (%) (Auto) 3.8% (0-4) Basophils (%) (Auto) 0.7% (0-2) Absolute Immature Granulocyte (auto 0.01T/MM3 (0.00-0.03) Absolute Neutrophils (auto) 4.6T/MM3 (1.8-7.7) Absolute Lymphocytes (auto) 2.2T/MM3 (1-4.8) Absolute Monocytes (auto) 0.5T/MM3 (0-0.8) Absolute Eosinophils (auto) 0.3T/MM3 (0-0.5) Absolute Basophils (auto) 0.1T/MM3 (0-0.2) D-Dimer 208NG/ML (0-230) Turbidity < 20 (0-20) Sodium Level 143MEQ/L (134-144) Potassium Level 4.0MEQ/L (3.6-5) Chloride Level 104MEQ/L (98-107) Carbon Dioxide Level 27MEQ/L (22-30) Anion Gap 12MEQ/L (5-15) Blood Urea Nitrogen 18.0MG/DL (9-20) Creatinine 0.9MG/DL (0.8-1.5) Glomerular Filtration Rate Calc 85 BUN/Creatinine Ratio 20RATIO (6-26) Glucose Level 120MG/DL (75-110) Calculated Osmolality 278MOSM/KG (261-280) Calcium Level 9.5MG/DL (8.4-10.2) Magnesium Level 1.8MG/DL (1.6-2.3) Icterus Index < 2 (0-7) Troponin I < 0.012ng/ml (0-0.12) < 0.012ng/ml (0-0.12) Chemistry Specimen Hemolysis < 15 (0-25) < 15 (0-25) Glucometer 112mg/dL (75-110) Test 09/20/16 05:57 09/20/16 08:20 09/20/16 11:26 Glucometer 102mg/dL (75-110) 102mg/dL (75-110) White Blood Count 7.5T/MM3 (4.5-11.0) Red Blood Count 5.11M/MM3 (4.50-5.90) Hemoglobin 15.1GM/DL (13.5-17.5) Hematocrit 44.4% (41-53) Mean Corpuscular Volume 86.9UM3 (80-100) Mean Corpuscular Hemoglobin 29.5UUG (26-34) Mean Corpuscular Hemoglobin Concent 34.0GM/DL (31-37) RDW Standard Deviation 42.0FL (36.9-50.2) Platelet Count 178T/MM3 (130-400) Mean Platelet Volume 9.8UM3 (9.4-12.4) Turbidity < 20 (0-20) Sodium Level 144MEQ/L (134-144) Potassium Level 3.8MEQ/L (3.6-5) Chloride Level 104MEQ/L (98-107) Carbon Dioxide Level 28MEQ/L (22-30) Anion Gap 12MEQ/L (5-15) Blood Urea Nitrogen 17.0MG/DL (9-20) Creatinine 0.9MG/DL (0.8-1.5) Glomerular Filtration Rate Calc 85 BUN/Creatinine Ratio 19RATIO (6-26) Glucose Level 119MG/DL (75-110) Calculated Osmolality 280MOSM/KG (261-280) Calcium Level 9.4MG/DL (8.4-10.2) Icterus Index < 2 (0-7) Chemistry Specimen Hemolysis < 15 (0-25) Radiology DATE OF EXAM: 09/19/16 ORDERING DOCTOR: KELVIN ARDON APRN TYPE OF EXAM: CHEST 1 VIEW REASON FOR EXAM: chest pain Indication: ITS.REASON: chest pain PROCEDURE: CHEST 1 VIEW: Encounter: Initial Comparison: June 28, 2016 Findings: The lungs are stable in appearance without new focal airspace consolidation. There is no pleural effusion or pneumothorax. The heart size, pulmonary vascularity and mediastinal contours are unchanged. Prior CABG. IMPRESSION: Stable appearance of the chest without acute cardiopulmonary disease. History of Present Illness Socrates is a 66 year old male who is well known to Dr Davis with a history of CAD with CABG, precordial pain, carotid stenosis, HTN, HLD who presented to the clinic with chest pain and was admitted to observation at [facility]. Objective Vital Signs Vital signs Vital Signs 09/20/16 07:08 Temp 96.4 Pulse 63 Resp 18 B/P 130/85 Pulse Ox 97 O2 Delivery Room Air Telemetry Rhythm: Sinus Rhythm Height (Feet): 6 Height (Inches): 0.00 Weight (Kilograms): 139.000 General Alert, Orientated x 3, Cooperative ENMT (Brief) mucosa moist Neck (Brief) NOT FOUND: JVD, carotid bruits Respiratory (Brief) clear all schuster, equal bilaterally, NOT FOUND: rales, wheezes Cardiovascular (Brief) regular rate, regular rhythm, NOT FOUND: click, gallop, murmur, pedal edema, rub Abdomen (Brief) BS normo active x4, soft, NOT FOUND: tender Integumentary (Brief) dry, pink, warm Psychiatric (Brief) alert, oriented Laboratory Laboratory Laboratory Tests Test 09/19/16 20:55 09/19/16 23:12 09/20/16 05:08 09/20/16 05:57 Glucometer 112mg/dL 102mg/dL Troponin I < 0.012ng/ml Chemistry Specimen Hemolysis < 15 Test 09/20/16 08:20 09/20/16 11:26 White Blood Count 7.5T/MM3 Red Blood Count 5.11M/MM3 Hemoglobin 15.1GM/DL Hematocrit 44.4% Mean Corpuscular Volume 86.9UM3 Mean Corpuscular Hemoglobin 29.5UUG Mean Corpuscular Hemoglobin Concent 34.0GM/DL RDW Standard Deviation 42.0FL Platelet Count 178T/MM3 Mean Platelet Volume 9.8UM3 Turbidity < 20 Sodium Level 144MEQ/L Potassium Level 3.8MEQ/L Chloride Level 104MEQ/L Carbon Dioxide Level 28MEQ/L Anion Gap 12MEQ/L Blood Urea Nitrogen 17.0MG/DL Creatinine 0.9MG/DL Glomerular Filtration Rate Calc 85 BUN/Creatinine Ratio 19RATIO Glucose Level 119MG/DL Calculated Osmolality 280MOSM/KG Calcium Level 9.4MG/DL Icterus Index < 2 Chemistry Specimen Hemolysis < 15 Glucometer 102mg/dL Laboratory Tests 09/20/16 08:20 Laboratory Tests 09/20/16 08:20 Medications Current Medications Morphine Sulfate (Morphine) prn Q1H PRN IV PAIN; Start 09/19/16 at 11:15; Stop 09/20/16 at 14:19; Status DC Enoxaparin Sodium (Lovenox) 40 mg DAILY SQ Last administered on 09/20/16t 09:37 ; Start 09/20/16 at 09:00; Stop 09/20/16 at 14:19; Status DC Ondansetron HCl (Zofran) 4 mg Q6H PRN IV NAUSEA; Start 09/19/16 at 11:15; Stop 09/20/16 at 14:19; Status DC Miscellaneous Medication (May use PRN orders) 1 PRN PRN MC ; Start 09/19/16 at 11:15; Stop 09/20/16 at 14:19; Status DC Nitroglycerin (Nitrostat) 0.4 mg Q5M PRN SL CHEST PAIN; Start 09/19/16 at 19:45 ; Stop 09/20/16 at 14:19; Status DC Radiology DATE OF EXAM: 09/19/16 ORDERING DOCTOR: KELVIN ARDON APRN TYPE OF EXAM: CHEST 1 VIEW REASON FOR EXAM: chest pain Indication: ITS.REASON: chest pain PROCEDURE: CHEST 1 VIEW: Encounter: Initial Comparison: June 28, 2016 Findings: The lungs are stable in appearance without new focal airspace consolidation. There is no pleural effusion or pneumothorax. The heart size, pulmonary vascularity and mediastinal contours are unchanged. Prior CABG. IMPRESSION: Stable appearance of the chest without acute cardiopulmonary disease. Hospital Course Serial troponin levels were negative, EKGs without ischemic changes. Problems: Code Status Full Code Home Meds Reported Medications Ezetimibe (Zetia) 10 Mg Tablet, 10 MG PO DAILY 06/28/16 Nitroglycerin (Nitroglycerin) 0.4 Mg Tab.subl, 0.4 MG SL Q5MIN Y for CHEST TIGHTNESS 11/27/15 Metformin HCl (Metformin HCl) 500 Mg Tablet, 500 MG PO BID 11/27/15 Famotidine (Famotidine) 20 Mg Tablet, 20 MG PO BID 10/22/15 Losartan Potassium (Losartan Potassium) 25 Mg Tablet, 25 MG PO DAILY 10/22/15 Clopidogrel Bisulfate (Clopidogrel) 75 Mg Tablet, 75 MG PO DAILY 10/22/15 Clobetasol Propionate/Emoll (Clobetasol Emollient 0.05% Crm) 15 Gm Cream..g., 1 APPLIC TOP PRN 10/22/15 Aspirin (Aspirin) 81 Mg Tab.chew, 81 MG PO DAILY 10/22/15 Metoprolol Tartrate (Metoprolol Tartrate) 25 Mg Tablet, 25 MG PO BIDWM 10/22/15 Potassium Chloride (Potassium Chloride) 10 Meq Capsule.er, 10 MEQ PO DAILY 10/22/15 Sertraline Hcl (Zoloft) 100 Mg Tablet, 50 MG PO DAILY 10/17/13 Hydrochlorothiazide (Hydrochlorothiazide) 25 Mg Tablet, 25 MG PO DAILY 09/17/13 Discharge Disposition Patient is discharged to home in good and stable condition in the care of himself SALMA DAVIS MD 09/22/16 1344: Hospital Course Home Meds Reported Medications Ezetimibe (Zetia) 10 Mg Tablet, 10 MG PO DAILY 06/28/16 Nitroglycerin (Nitroglycerin) 0.4 Mg Tab.subl, 0.4 MG SL Q5MIN Y for CHEST TIGHTNESS 11/27/15 Metformin HCl (Metformin HCl) 500 Mg Tablet, 500 MG PO BID 11/27/15 Famotidine (Famotidine) 20 Mg Tablet, 20 MG PO BID 10/22/15 Losartan Potassium (Losartan Potassium) 25 Mg Tablet, 25 MG PO DAILY 10/22/15 Clopidogrel Bisulfate (Clopidogrel) 75 Mg Tablet, 75 MG PO DAILY 10/22/15 Clobetasol Propionate/Emoll (Clobetasol Emollient 0.05% Crm) 15 Gm Cream..g., 1 APPLIC TOP PRN 10/22/15 Aspirin (Aspirin) 81 Mg Tab.chew, 81 MG PO DAILY 10/22/15 Metoprolol Tartrate (Metoprolol Tartrate) 25 Mg Tablet, 25 MG PO BIDWM 10/22/15 Potassium Chloride (Potassium Chloride) 10 Meq Capsule.er, 10 MEQ PO DAILY 10/22/15 Sertraline Hcl (Zoloft) 100 Mg Tablet, 50 MG PO DAILY 10/17/13 Hydrochlorothiazide (Hydrochlorothiazide) 25 Mg Tablet, 25 MG PO DAILY 09/17/13 Discharge Disposition After examining the patient I agree with the above assessment. I am involved in the formulation of the patient's plan of care. KELVIN ARDON APRN Sep 20, 2016 16:22 SALMA DAVIS MD Sep 22, 2016 13:44
[2016-09-21 01:14] LABS: LDL CHOLESTEROL,CALCULATED 100.4 (66-159); RISK FACTOR 5.5 RATIO (0-5.0); VLDL CHOLESTEROL 30.6 MG/DL (0-28)
--- NOTE | 2016-09-21 11:25 | NUR ---
ATTEMPTED [facility] FOLLOW UP PHONE CALL #1, NO ANSWER, LEFT VOICE MESSAGE TO RETURN CALL TO CM.
== END 2016-09-20 13:53 | disposition home or self-care (01) ==
LOC: MED 10:41
PROVIDERS: ADMIT Internal Medicine Cardiovascular Disease; ATTEND Internal Medicine Cardiovascular Disease
DX: R07.2 Precordial pain (principal); I25.729 Atherosclerosis of autologous artery coronary artery bypass graft(s) with unspecified angina pectoris; E78.2 Mixed hyperlipidemia; I10 Essential (primary) hypertension; I65.23 Occlusion and stenosis of bilateral carotid arteries; I25.2 Old myocardial infarction; E11.9 Type 2 diabetes mellitus without complications; Z79.02 Long term (current) use of antithrombotics/antiplatelets; Z79.82 Long term (current) use of aspirin; Z79.899 Other long term (current) drug therapy; Z82.49 Family history of ischemic heart disease and other diseases of the circulatory system
CPT/HCPCS: 36415; 71010; 80048; 80061; 82948; 83735; 84484; 85025; 85027; 85379; 93005; 96372; 99218; J1650